=== PATIENT | male | born 1945 | race African-American/Black ===

== ENCOUNTER 2018-01-13 19:22 | Emergency (ER) | payer OTHER, MEDICARE, MEDICAID ==
[2018-01-13] MEDS ORDERED: IBUPROFEN 600 MG TABLET PO ONE (20:27)
[2018-01-13] MEDS ORDERED: METHOCARBAMOL 500 MG TABLET PO ONE (20:27)
[2018-01-13] MEDS ORDERED: LIDOCAINE 5% (700 MG) TRANSDERMAL ADH..PATCH TP ONE (20:30)
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
[2018-01-13 22:19] VITALS: BP 151/93
== END 2018-01-13 22:18 | disposition home or self-care (01) ==
LOC: ER 19:22
DX: M54.5 Low back pain (principal); M25.562 Pain in left knee; M25.561 Pain in right knee; V43.52XA Car driver injured in collision with other type car in traffic accident, initial encounter; Y92.481 Parking lot as the place of occurrence of the external cause; I10 Essential (primary) hypertension; E11.9 Type 2 diabetes mellitus without complications
CPT/HCPCS: 72110; 99283